=== PATIENT | male | born 1985 | race African-American/Black ===

== ENCOUNTER 2016-09-12 09:17 | Emergency (ER) | payer OTHER ==
[~2016-09-12] VITALS: Ht 175.3 cm; Wt 108.4 kg
[2016-09-12] MEDS ORDERED: PERCOCET 5/31 TABLET PO (10:50)
[2016-09-12] MEDS ORDERED: FLEXERIL10 MG PO (10:50)
[2016-09-12 10:57] VITALS: BP 139/84
== END 2016-09-12 10:58 | disposition home or self-care (01) ==
LOC: EME 09:17
DX: M54.9 Dorsalgia, unspecified (principal); M79.1 Myalgia
CPT/HCPCS: 71020; 99281; 99284; J1885